=== PATIENT | male | born 1990 | race Two or more races ===

== ENCOUNTER 2023-02-03 16:17 | Emergency (ER) | payer SELFPAY ==
[~2023-02-03] VITALS: Ht 180.3 cm; Wt 217.0 kg
[2023-02-03 17:45] VITALS: BP 138/74
== END 2023-02-03 18:16 | disposition home or self-care (01) ==
LOC: ER 16:17
DX: S93.401A Sprain of unspecified ligament of right ankle, initial encounter (principal); S93.402A Sprain of unspecified ligament of left ankle, initial encounter; X50.1XXA Overexertion from prolonged static or awkward postures, initial encounter; Y93.89 Activity, other specified; Y92.89 Other specified places as the place of occurrence of the external cause; Y99.8 Other external cause status
CPT/HCPCS: 73610

== ENCOUNTER 2023-07-31 04:57 | Emergency (ER) | payer MEDICAID ==
[~2023-07-31] VITALS: Ht 177.8 cm; Wt 225.0 kg
[2023-07-31 05:09] VITALS: BP 117/81; PULSE 68; RESP 18; O2SAT 97
[2023-07-31] MEDS ORDERED: IBUP-1456 PO (05:11)
[2023-07-31] MEDS ORDERED: KETOROLAC TROMETH 60MG/2ML VIAL IM ONE (05:15)
== END 2023-07-31 05:26 | disposition home or self-care (01) ==
LOC: ER 04:57
DX: G44.209 Tension-type headache, unspecified, not intractable (principal)
CPT/HCPCS: 96372; 99283; J1885

== ENCOUNTER 2023-08-06 19:13 | Emergency (ER) | payer MEDICAID ==
[~2023-08-06] VITALS: Ht 177.8 cm; Wt 227.0 kg
[~2023-08-06 19:13] MED LIST: IBUP-1456 PO
[2023-08-06 20:17] VITALS: BP 178/90; PULSE 90; RESP 18; TEMP 98.3; O2SAT 95
[2023-08-06] MEDS ORDERED: CYCL-837 PO (21:08)
[2023-08-06] MEDS ORDERED: KETOROLAC TROMETH 60MG/2ML VIAL IM ONE (21:15)
== END 2023-08-06 21:39 | disposition home or self-care (01) ==
LOC: ER 19:13
DX: M54.32 Sciatica, left side (principal); E66.01 Morbid (severe) obesity due to excess calories; Z68.45 Body mass index [BMI] 70 or greater, adult
CPT/HCPCS: 96372; 99283; J1885